=== PATIENT | male | born 1985 | race African-American/Black ===

== ENCOUNTER 2023-09-20 10:14 | Emergency (ER) | payer OTHER ==
[~2023-09-20] VITALS: Ht 195.6 cm; Wt 124.0 kg
[2023-09-20] MEDS ORDERED: PRED20TA PO (12:48)
[2023-09-20] MEDS ORDERED: NAPR-837 PO (12:48)
[2023-09-20] MEDS ORDERED: CYCL-707 PO (12:48)
[2023-09-20] MEDS: KETOROLAC 60MG 2ML VIAL IM ONE (12:53)
[2023-09-20] MEDS: ONDANSETRON 4MG ORAL DISINTEGRATING TAB PO ONE (12:53)
[2023-09-20 12:56] VITALS: BP 120/83; TEMP 97.6; O2SAT 100
== END 2023-09-20 13:12 | disposition home or self-care (01) ==
LOC: M ED 10:14
DX: R51.9 Headache, unspecified (principal); R11.0 Nausea; S13.4XXA Sprain of ligaments of cervical spine, initial encounter; Y92.9 Unspecified place or not applicable; Y93.9 Activity, unspecified; Y99.9 Unspecified external cause status; Z79.899 Other long term (current) drug therapy; Z79.52 Long term (current) use of systemic steroids
CPT/HCPCS: 70450; 72125; 96372; 99284; J1885

== ENCOUNTER → 2024-04-11 | Outpatient (CLI) | payer OTHER ==
[~2024-04-11] MED LIST: CYCL-707 PO; NAPR-837 PO; PRED20TA PO
== END ==
LOC: M SOG 07:56
PROVIDERS: ATTEND Physician Assistant
DX: M25.531 Pain in right wrist (principal)

== ENCOUNTER 2024-06-05 07:21 | Day surgery (SDC) | payer OTHER ==
[~2024-06-05] VITALS: Ht 195.6 cm; Wt 120.6 kg
[2024-06-05] MEDS ORDERED: fentaNYL 250 MCG/5 ML INJECTION As Ordered ONE (08:12)
[2024-06-05] MEDS ORDERED: MIDAZOLAM INJ 2MG/2ML VIAL As Ordered ONE (08:12)
[2024-06-05] MEDS ORDERED: propofoL 200 MG/20 ML VIAL As Ordered ONE (08:12)
[2024-06-05] MEDS ORDERED: LIDOCAINE 2% 100MG/5ML SDV (FOR ANES.) As Ordered ONE (08:12)
[2024-06-05] MEDS ORDERED: LR 1,000 ML IV SCH ×2 (10:15→11:40)
[2024-06-05] MEDS: ceFAZolin SODIUM 2 GM VIAL As Ordered ONE (10:34)
[2024-06-05] MEDS: ceFAZolin 1GM VIAL As Ordered ONE (10:34)
[2024-06-05] MEDS: ceFAZolin SOD 3 GM in DEXTROSE 5% (D5W) MINI-BAG PLU 1... IV ONE (10:48)
[2024-06-05] MEDS ORDERED: ACETAMINOPHEN 1000MG/100ML IV BAG As Ordered ONE (10:58)
[2024-06-05] MEDS ORDERED: ONDANSETRON 4MG 2ML VIAL As Ordered ONE (10:58)
[2024-06-05] MEDS ORDERED: KETOROLAC 30 MG/ML 1ML VIAL As Ordered ONE (10:58)
[2024-06-05] MEDS ORDERED: HYDROMORPHONE HCL 0.5 MG/ 0.5 ML SYRINGE IV PRN (11:40)
[2024-06-05] MEDS ORDERED: fentaNYL 100 MCG/2 ML INJECTION IV PRN (11:40)
[2024-06-05] MEDS ORDERED: ONDANSETRON 4MG 2ML VIAL IV PRN (11:40)
[2024-06-05] MEDS ORDERED: POLYSPORIN TOPICAL OINTMENT 15GM As Ordered ONE (11:43)
[2024-06-05] MEDS ORDERED: PERCOCET PO (12:03)
[2024-06-05] MEDS: oxyCODONE 5MG TAB PO PRN (12:18)
[2024-06-05 12:50] VITALS: BP 131/79; TEMP 97; O2SAT 97
== END 2024-06-05 13:20 | disposition home or self-care (01) ==
LOC: M SDC 07:21
PROVIDERS: ATTEND Orthopaedic Surgery Hand Surgery
DX: G56.21 Lesion of ulnar nerve, right upper limb (principal); G47.30 Sleep apnea, unspecified
CPT/HCPCS: 29999; 64719; J0131; J0665; J0690; J1100; J1885; J2250; J2405; J3010